=== PATIENT | female | born 1980 | race African-American/Black ===

== ENCOUNTER 2024-10-10 20:25 | Inpatient (IN) | payer OTHER ==
[2024-10-10 20:33] VITALS: BMI 29.2
[2024-10-10] MEDS ORDERED: VANCOMYCIN HCL 1,500 MG in DEXTROSE 5%-WATER - 500 ML IVPB ONE (21:24)
[2024-10-10 22:37] LABS: ABSOLUTE IMMATURE GRANULOCYTES 0.03 x10^3/uL (0.0-0.031); BASOPHILS # 0.06 x10^3/uL (0.01-0.08); EOSINOPHIL % 3.3 % (0.7-5.8); EOSINOPHILS # 0.22 x10^3/uL (0.04-0.36); HEMATOCRIT 38.2 % (34.1-44.9); HEMOGLOBIN 12.4 g/dL (11.2-15.7); MCHC 32.5 g/dl (32.2-35.5); MEAN CELL VOLUME 80.8 fl (79.4-94.8); MEAN PLT VOLUME 11.2 fl (9.4-12.3); MONOCYTE # 0.62 x10^3/uL (0.24-0.86); MONOCYTE % 9.2 % (4.7-12.5); PLATELET COUNT 293 x10^3/uL (182-369); RDW 16.6 % (12.2-17.1)
[2024-10-10 22:43] LABS: VENOUS O2 SATURATION 24.9 % (70-80); VENOUS PCO2 60.1 mmHg (38-52); VENOUS PH 7.279 (7.310-7.410)
[2024-10-10 22:49] LABS: ACTIVATED PTT 28.7 SECONDS (25.2-36.5)
[2024-10-10] MEDS ORDERED: PIPERACILLIN/TAZOB 4.5 GM 4.5 GM/100 ML BAG IVPB ONE (22:49)
[2024-10-10] MEDS: PIPERACILLIN/TAZOB 4.5 GM 4.5 GM in DEXTROSE 5%-WATER 100 ML IVPB ONE (22:56)
[2024-10-10 23:07] LABS: POTASSIUM 4.3 mmol/L (3.5-5.1)
[2024-10-10 23:09] LABS: CALCIUM 9.6 mg/dL (8.5-10.1)
[2024-10-10 23:10] LABS: ALBUMIN 3.6 g/dl (3.4-5.0); BLOOD UREA NITROGEN 19.4 mg/dL (7-18); MAGNESIUM 2.1 mg/dL (1.8-2.4)
[2024-10-10 23:14] LABS: BILIRUBIN,TOTAL 0.3 mg/dL (0.2-1); TOT PROT 7.8 g/dl (6.4-8.2)
[2024-10-11 00:01] LABS: HCV DIAGNOSTIC IN-HOUSE W/RFLX NON-REACTIVE (NONREACTIVE); HIV INTERPRETATION NEGATIVE (NEGATIVE)
[2024-10-11] MEDS: CLINDAMYCIN 900 MG PREMIX IVPB 900 MG/50 ML BAG IVPB SCH ×2 (00:01→01:01)
[2024-10-11] MEDS: VANCOMYCIN HCL IN 5 % DEXTROSE 1,500 MG/300 ML BAG IVPB ONE (00:11)
[2024-10-11] MEDS: SODIUM CHLORIDE 1,000 ML IV SCH (00:52)
[2024-10-11] MEDS: VANCOMYCIN HCL 1,500 MG in DEXTROSE 5%-WATER - 500 ML IVPB SCH (00:54)
[2024-10-11] MEDS ORDERED: MORPHINE SULFATE 2 MG/ML SYRINGE IVPUSH PRN (00:56)
[2024-10-11] MEDS: CEFEPIME HCL/D5W 2 GM/50 ML BAG IVPB SCH (03:55)
[2024-10-11] MEDS: oxyCODONE HCL 5 MG TABLET PO PRN (06:30)
[2024-10-11] MEDS: HEPARIN NA (PORCINE) 5,000 UNITS/ML 1ML VIAL SQ SCH (06:32)
[2024-10-11] MEDS ORDERED: ACETAMINOPHEN 1000 MG/100 ML BAG IVPB PRN ×2 (08:46→22:37)
[2024-10-11 11:32] LABS: ABSOLUTE IMMATURE GRANULOCYTES 0.02 x10^3/uL (0.0-0.031); BASOPHILS # 0.05 x10^3/uL (0.01-0.08); EOSINOPHIL % 3.7 % (0.7-5.8); EOSINOPHILS # 0.22 x10^3/uL (0.04-0.36); HEMATOCRIT 32.5 % (34.1-44.9); HEMOGLOBIN 10.9 g/dL (11.2-15.7); MCHC 33.5 g/dl (32.2-35.5); MEAN CELL VOLUME 80.6 fl (79.4-94.8); MEAN PLT VOLUME 11.4 fl (9.4-12.3); MONOCYTE # 0.57 x10^3/uL (0.24-0.86); MONOCYTE % 9.6 % (4.7-12.5); PLATELET COUNT 248 x10^3/uL (182-369); RDW 16.9 % (12.2-17.1)
[2024-10-11 11:57] LABS: POTASSIUM 4.8 mmol/L (3.5-5.1)
[2024-10-11 11:59] LABS: CALCIUM 8.8 mg/dL (8.5-10.1)
[2024-10-11 12:00] LABS: BLOOD UREA NITROGEN 12.2 mg/dL (7-18)
[2024-10-11 12:03] LABS: CREATININE 0.8 mg/dL (0.55-1.3)
[2024-10-11] MEDS ORDERED: PIPERACILLIN/TAZOB 3.375 GM 3.375 GM in DEXTROSE 5%-WATER - 50 ML IVPB SCH (15:00)
[2024-10-11] MEDS ORDERED: PIPERACILLIN/TAZOB 3.375 GM 50 ML IVPB SCH (15:00)
[2024-10-11] MEDS: PIPERACILLIN/TAZOB 4.5 GM 4.5 GM/100 ML BAG IVPB SCH (18:08)
[2024-10-11] MEDS: DOXYCYCLINE HYCLATE 100 MG CAPSULE PO SCH (18:11)
[2024-10-11] MEDS ORDERED: PIPERACILLIN/TAZOB 4.5 GM 4.5 GM in DEXTROSE 5%-WATER 100 ML IVPB SCH (18:15)
[2024-10-11] MEDS ORDERED: VANCOMYCIN PREMIX 1.5 GM 1,500 MG/300 ML BAG IVPB SCH (23:00)
[2024-10-11] MEDS ORDERED: CLINDAMYCIN 900 MG PREMIX IVPB 900 MG/50 ML BAG IVPB SCH (23:45)
[2024-10-12] MEDS: CEFEPIME HCL 2 GM VIAL (RESTRICTED TO ID) IVPB SCH (00:46)
[2024-10-12] MEDS: HEPARIN NA (PORCINE) 5,000 UNITS/ML 1ML VIAL SQ SCH (05:17)
[2024-10-12 08:20] LABS: ABSOLUTE IMMATURE GRANULOCYTES 0.01 x10^3/uL (0.0-0.031); BASOPHILS # 0.05 x10^3/uL (0.01-0.08); EOSINOPHIL % 7.3 % (0.7-5.8); EOSINOPHILS # 0.34 x10^3/uL (0.04-0.36); HEMATOCRIT 32.3 % (34.1-44.9); HEMOGLOBIN 10.6 g/dL (11.2-15.7); MCHC 32.8 g/dl (32.2-35.5); MEAN CELL VOLUME 78.8 fl (79.4-94.8); MEAN PLT VOLUME 11.1 fl (9.4-12.3); MONOCYTE # 0.42 x10^3/uL (0.24-0.86); MONOCYTE % 9.1 % (4.7-12.5); PLATELET COUNT 249 x10^3/uL (182-369); RDW 16.5 % (12.2-17.1)
[2024-10-12 08:28] LABS: INR 1.04 (0.83-1.09); PROTHROMBIN TIME (PATIENT) 11.4 SEC (9.7-13.0)
[2024-10-12 08:42] LABS: POTASSIUM 3.7 mmol/L (3.5-5.1)
[2024-10-12 08:51] LABS: BLOOD UREA NITROGEN 11.8 mg/dL (7-18)
[2024-10-12 08:53] LABS: CALCIUM 8.8 mg/dL (8.5-10.1)
[2024-10-12 08:54] LABS: CREATININE 0.8 mg/dL (0.55-1.3); PHOSPHOROUS 3.8 mg/dL (2.5-4.9)
[2024-10-12 08:56] LABS: BILIRUBIN,TOTAL 0.4 mg/dL (0.2-1); TOT PROT 6.2 g/dl (6.4-8.2)
[2024-10-12 08:58] LABS: ALBUMIN 2.8 g/dl (3.4-5.0)
[2024-10-12] MEDS: ACETAMINOPHEN 325 MG TABLET (FP) PO PRN (21:41)
[2024-10-13 09:20] LABS: ABSOLUTE IMMATURE GRANULOCYTES 0.01 x10^3/uL (0.0-0.031); BASOPHILS # 0.04 x10^3/uL (0.01-0.08); EOSINOPHIL % 5.1 % (0.7-5.8); HEMATOCRIT 32.8 % (34.1-44.9); HEMOGLOBIN 10.9 g/dL (11.2-15.7); MCHC 33.2 g/dl (32.2-35.5); MEAN CELL VOLUME 78.3 fl (79.4-94.8); MEAN PLT VOLUME 10.7 fl (9.4-12.3); MONOCYTE # 0.39 x10^3/uL (0.24-0.86); PLATELET COUNT 250 x10^3/uL (182-369); RDW 16.1 % (12.2-17.1)
[2024-10-13 09:40] LABS: POTASSIUM 4.2 mmol/L (3.5-5.1)
[2024-10-13 09:48] LABS: ALBUMIN 2.8 g/dl (3.4-5.0); BLOOD UREA NITROGEN 10.1 mg/dL (7-18)
[2024-10-13 09:51] LABS: CREATININE 0.7 mg/dL (0.55-1.3)
[2024-10-13 09:53] LABS: BILIRUBIN,TOTAL 0.4 mg/dL (0.2-1); TOT PROT 6.3 g/dl (6.4-8.2)
[2024-10-13] MEDS: FERROUS SO4 325 MG TABLET (FP) PO SCH (15:49)
[2024-10-14 07:42] LABS: ABSOLUTE IMMATURE GRANULOCYTES 0.01 x10^3/uL (0.0-0.031); BASOPHILS # 0.03 x10^3/uL (0.01-0.08); EOSINOPHIL % 5.2 % (0.7-5.8); EOSINOPHILS # 0.22 x10^3/uL (0.04-0.36); HEMOGLOBIN 11.1 g/dL (11.2-15.7); MCHC 33.6 g/dl (32.2-35.5); MEAN PLT VOLUME 10.6 fl (9.4-12.3); MONOCYTE # 0.38 x10^3/uL (0.24-0.86); PLATELET COUNT 262 x10^3/uL (182-369); RDW 15.8 % (12.2-17.1)
[2024-10-14 08:11] LABS: CALCIUM 9.1 mg/dL (8.5-10.1)
[2024-10-14 08:12] LABS: ALBUMIN 2.9 g/dl (3.4-5.0); BLOOD UREA NITROGEN 9.4 mg/dL (7-18)
[2024-10-14 08:15] LABS: CREATININE 0.7 mg/dL (0.55-1.3)
[2024-10-14 08:16] LABS: BILIRUBIN,TOTAL 0.4 mg/dL (0.2-1)
[2024-10-14 08:17] LABS: TOT PROT 6.5 g/dl (6.4-8.2)
[2024-10-15 10:46] VITALS: BP 125/81; PULSE 88; RESP 18; TEMP 98.2
[2024-10-15] MEDS ORDERED: AMOX TR/POT CLAV 875MG/125MG TABLETS (FP) PO SCH (17:30)
== END 2024-10-15 14:10 | disposition home or self-care (01) | DRG 197 ==
LOC: JER 20:25 → JERBED 10-11 00:34 → J4W 10-11 03:17 → J8W 10-11 22:41
PROVIDERS: ADMIT Hospitalist; ATTEND Nurse Practitioner Family
DX: I96 Gangrene, not elsewhere classified (principal); L97.319 Non-pressure chronic ulcer of right ankle with unspecified severity; Z59.00 Homelessness unspecified; F17.210 Nicotine dependence, cigarettes, uncomplicated
CPT/HCPCS: 36415; 73590-TC-LT-FY; 73590-TC-RT-FY; 73630-TC-LT; 73630-TC-RT-FY; 80048; 80053; 82803; 83036; 83605; 83735; 84100; 85025; 85610; 85730; 86803; 86850; 86900; 86901; 87040; 87070; 87186; 87205; 87389; 93005; 93010; 93970-TC; 99285-25; J1644